=== PATIENT | male | born 1980 | race Caucasian/White ===

== ENCOUNTER 2018-03-31 16:35 | Inpatient (IN) ==
[2018-03-31] MEDS ORDERED: SODIUM CHLORIDE 0.9% 1,000 ML IV STA (17:17)
[2018-03-31] MEDS ORDERED: PANTOPRAZOLE 40 MG VIAL IV STA (17:17)
[2018-03-31] MEDS ORDERED: ONDANSETRON 4 MG/2 ML VIAL IV STA ×2 (17:17→20:06)
[2018-03-31] MEDS ORDERED: ALUM/MAG/SIMETH/LIDO VISC 1:1 30 ML BOTTLE PO STA (17:17)
[2018-03-31 18:16] LABS: Basophils % 0.1 % (0.0-0.8); Hematocrit 42.5 VOL% (42.0-52.0); Hemoglobin 14.6 GM/DL (14.0-18.0); Immature Granulocytes % 0.7 %; Immature Granulocytes Absolute 0.16 #; Lymphocytes # 1.7 10*3/uL (1.4-4.0); Mean Corpuscular HGB Conc 34.4 GM/DL (32-36); Mean Corpuscular Hemoglobin 31 PG (27-34); Mean Corpuscular Volume 88.7 FL (87-102); Mean Platelet Volume 9.1 FL (9.6-12.0); Monocytes % 8.5 % (1.7-12.7); Neutrophils # 19.7 10*3/uL (1.4-7.4); Neutrophils % 83.7 % (38.7-73.9); Platelet Count 271 T/CUMM (130-400); Red Blood Count 4.79 MC/CUMM (3.8-5.5); Red Cell Distribution Width 13.1 % (9.3-17.3); White Blood Count 23.6 T/CUMM (4-12)
[2018-03-31 18:37] LABS: Band Neutrophils 1 % (0-10); Lymphocytes 12 % (20-55); Platelet Estimate Normal; Segmented Neutrophils 81 % (50-85); Total Cells Counted 100
[2018-03-31 18:41] LABS: Albumin 4.3 G/DL (3.4-5.0); Bilirubin,Total 0.6 MG/DL (0.2-1.0); Calcium 9.7 MG/DL (8.5-10.1); Osmolality,Calculated 268.4 MOS/KG (273-304); Total Protein 8.4 G/DL (6.4-8.3)
[2018-03-31 19:13] LABS: Apearance,Urine Slightly Hazy (Clear); Bilirubin,Urine Negative (Negative); Blood, Urine Negative (Negative); Glucose,Urine (UA) Negative (Negative); Ketones,Urine 20 mg/dL (Negative); Mucus,Urine Moderate /LPF (Occasional); Nitrite,Urine Negative (Negative); Protein,Urine 100 MG/DL; RBC,Urine 16 /HPF (0-4); Urine Specific Gravity 1.028 (1.001-1.035); WBC,Urine 3 /HPF (0-6)
[2018-03-31 19:15] LABS: Urine Color Dark yellow (Yellow)
[2018-03-31 19:18] LABS: Barbiturates Screen,Urine Negative (Negative); Benzodiazepines Screen,Urine Negative (Negative); Cannabinoid Screen,Urine Positive (Negative); Opiate Screen,Urine Negative (Negative); Phencyclidine Screen,Urine Negative (Negative)
[2018-03-31] MEDS ORDERED: HYDROmorphone 2 MG/1 ML VIAL IV ONE (19:30)
[2018-03-31] MEDS ORDERED: PROMETHAZINE 25 MG/1 ML VIAL IM STA (19:51)
[2018-03-31] MEDS ORDERED: PIPERACILLIN/TAZOBACTAM 3,375 MG in SODIUM CHLORIDE 0.9% 100 ML IV STA (19:58)
[2018-03-31] MEDS ORDERED: ceFAZolin 1,000 MG in SYRINGE 1 EACH IV ONE (20:44)
[2018-03-31] MEDS ORDERED: HYDROmorphone 2 MG/1 ML VIAL ONE (22:20)
[2018-03-31] MEDS ORDERED: PROPOFOL 200 MG/20 ML VIAL IV ONE (22:20)
[2018-03-31] MEDS ORDERED: ONDANSETRON 4 MG/2 ML VIAL ONE ×2 (22:20→22:21)
[2018-03-31] MEDS ORDERED: fentaNYL 100 MCG/2 ML VIAL ONE (22:21)
[2018-03-31] MEDS ORDERED: MIDAZOLAM 2 MG/2 ML VIAL ONE (22:21)
[2018-03-31] MEDS ORDERED: PHENYLEPHRINE 0.5% NASAL SPRAY 15 ML BOTTLE BOTH NARES ONE (22:21)
[2018-03-31] MEDS ORDERED: SEVOFLURANE 1 UNIT/15 MINUTE INH ONE (22:21)
[2018-03-31] MEDS ORDERED: ONDANSETRON 4 MG/2 ML VIAL IV PRN (22:22)
[2018-03-31] MEDS ORDERED: GLYCOPYRROLATE 0.4 MG/2 ML VIAL ONE (22:22)
[2018-03-31] MEDS ORDERED: LACTATED RINGERS 2,000 ML IV ONE (22:22)
[2018-03-31] MEDS ORDERED: NEOSTIGMINE 10 MG/10 ML VIAL ONE (22:22)
[2018-03-31] MEDS ORDERED: ROCURONIUM 100 MG/10 ML VIAL IV ONE (22:22)
[2018-03-31] MEDS ORDERED: PHENYLEPHRINE 1 MG/10 ML SYRINGE IV ONE (22:22)
[2018-03-31] MEDS: HYDROmorphone 2 MG/1 ML VIAL IV PRN ×4 (22:39→23:42)
[2018-03-31] MEDS: DEXTROSE 5% LACTATED RINGERS 1,000 ML IV SCH (23:44)
[2018-03-31] MEDS: ONDANSETRON 4 MG/2 ML VIAL IV PRN (23:49)
[2018-04-01] MEDS: HYDROmorphone 2 MG/1 ML VIAL IV PRN ×7 (01:36→21:23)
[2018-04-01] MEDS: ONDANSETRON 4 MG/2 ML VIAL IV PRN ×4 (01:36→21:24)
[2018-04-01] MEDS: cefOXitin 2,000 MG in SYRINGE 1 EACH IV SCH ×3 (04:17→13:50)
[2018-04-01 05:19] LABS: Basophils # 0.1 10*3/uL (0.0-0.2); Basophils % 0.3 % (0.0-0.8); Eosinophils # 0.1 10*3/uL (0.0-0.87); Eosinophils % 0.4 % (0.00-10.9); Hematocrit 37.7 VOL% (42.0-52.0); Immature Granulocytes % 0.5 %; Immature Granulocytes Absolute 0.11 #; Lymphocytes % 13.4 % (21.2-54.2); Mean Corpuscular HGB Conc 33.2 GM/DL (32-36); Mean Corpuscular Hemoglobin 30 PG (27-34); Mean Corpuscular Volume 90.4 FL (87-102); Mean Platelet Volume 9.6 FL (9.6-12.0); Monocytes # 1.4 10*3/uL (0.11-0.8); Monocytes % 6.2 % (1.7-12.7); Neutrophils # 17.8 10*3/uL (1.4-7.4); Neutrophils % 79.2 % (38.7-73.9); Platelet Count 242 T/CUMM (130-400); Red Blood Count 4.17 MC/CUMM (3.8-5.5); Red Cell Distribution Width 13.2 % (9.3-17.3); White Blood Count 22.5 T/CUMM (4-12)
[2018-04-01 05:40] LABS: Hemoglobin 12.5 GM/DL (14.0-18.0)
[2018-04-01 05:46] LABS: Band Neutrophils 2 % (0-10); Calcium 8.3 MG/DL (8.5-10.1); Eosinophils 1 % (0-10); Osmolality,Calculated 269.1 MOS/KG (273-304); Potassium 3.6 MMOL/L (3.5-5.1); Total Cells Counted 100
[2018-04-01 05:47] LABS: Hypochromasia 2+; Lymphocytes 14 % (20-55); Platelet Estimate Normal; Segmented Neutrophils 78 % (50-85)
[2018-04-01] MEDS: DEXTROSE 5% LACTATED RINGERS 1,000 ML IV SCH ×4 (06:35→21:24)
[2018-04-01] MEDS: PANTOPRAZOLE 40 MG VIAL IV SCH (08:02)
[2018-04-01] MEDS ORDERED: ROPIVACAINE 0.5% 30 ML VIAL ONE (08:29)
[2018-04-01] MEDS ORDERED: LIDOCAINE 2% 20 ML VIAL ONE (08:29)
[2018-04-01] MEDS ORDERED: KETOROLAC 30 MG/1 ML VIAL IV ONE (14:34)
[2018-04-01] MEDS ORDERED: HYDROmorphone 2 MG/1 ML VIAL IV ONE (14:51)
[2018-04-01] MEDS: ceFAZolin 1,000 MG in SYRINGE 1 EACH IV SCH ×2 (15:13→21:46)
[2018-04-01] MEDS: KETOROLAC 15 MG/1 ML VIAL IV SCH (21:24)
[2018-04-02] MEDS: KETOROLAC 15 MG/1 ML VIAL IV SCH ×4 (02:47→20:33)
[2018-04-02] MEDS: DEXTROSE 5% LACTATED RINGERS 1,000 ML IV SCH ×3 (02:47→19:32)
[2018-04-02] MEDS: HYDROmorphone 2 MG/1 ML VIAL IV PRN ×4 (02:48→20:34)
[2018-04-02] MEDS: ONDANSETRON 4 MG/2 ML VIAL IV PRN (02:48)
[2018-04-02] MEDS: PANTOPRAZOLE 40 MG VIAL IV SCH (09:29)
[2018-04-02] MEDS: ceFAZolin 1,000 MG in SYRINGE 1 EACH IV SCH ×2 (09:29→17:11)
[2018-04-03] MEDS: ceFAZolin 1,000 MG in SYRINGE 1 EACH IV SCH ×3 (00:56→18:00)
[2018-04-03] MEDS: HYDROmorphone 2 MG/1 ML VIAL IV PRN ×3 (01:58→15:52)
[2018-04-03] MEDS: KETOROLAC 15 MG/1 ML VIAL IV SCH ×4 (02:50→20:35)
[2018-04-03] MEDS: DEXTROSE 5% LACTATED RINGERS 1,000 ML IV SCH ×3 (02:51→20:36)
[2018-04-03 04:35] LABS: Basophils % 0.3 % (0.0-0.8); Eosinophils # 0.4 10*3/uL (0.0-0.87); Eosinophils % 3.5 % (0.00-10.9); Hematocrit 33.7 VOL% (42.0-52.0); Hemoglobin 11.1 GM/DL (14.0-18.0); Immature Granulocytes % 0.3 %; Immature Granulocytes Absolute 0.04 #; Lymphocytes # 1.7 10*3/uL (1.4-4.0); Mean Corpuscular HGB Conc 32.9 GM/DL (32-36); Mean Corpuscular Hemoglobin 30 PG (27-34); Mean Corpuscular Volume 91.1 FL (87-102); Monocytes % 8.2 % (1.7-12.7); Neutrophils # 8.7 10*3/uL (1.4-7.4); Neutrophils % 73.7 % (38.7-73.9); Platelet Count 189 T/CUMM (130-400); White Blood Count 11.8 T/CUMM (4-12)
[2018-04-03 05:01] LABS: Calcium 8.3 MG/DL (8.5-10.1); Osmolality,Calculated 265.1 MOS/KG (273-304); Potassium 3.5 MMOL/L (3.5-5.1)
[2018-04-03] MEDS: PANTOPRAZOLE 40 MG VIAL IV SCH (09:17)
[2018-04-04] MEDS: ceFAZolin 1,000 MG in SYRINGE 1 EACH IV SCH ×2 (01:07→09:29)
[2018-04-04] MEDS: DEXTROSE 5% LACTATED RINGERS 1,000 ML IV SCH ×2 (01:07→13:52)
[2018-04-04] MEDS: KETOROLAC 15 MG/1 ML VIAL IV SCH ×2 (03:08→09:29)
[2018-04-04] MEDS: PANTOPRAZOLE 40 MG VIAL IV SCH (09:29)
[2018-04-04] MEDS: HYDROmorphone 2 MG/1 ML VIAL IV PRN (09:30)
[2018-04-04 10:24] VITALS: BP 141/89
== END 2018-04-04 12:51 | disposition home or self-care (01) | DRG 330 ==
LOC: N.ED 16:35 → N.EDINP 19:59 → N.3E 20:15
PROVIDERS: ADMIT Surgery; ATTEND Surgery

== ENCOUNTER 2018-12-04 07:30 | Inpatient (IN) ==
[2018-12-04 07:59] LABS: Basophils # 0.1 10*3/uL (0.0-0.2); Basophils % 0.4 % (0.0-0.8); Eosinophils # 0.1 10*3/uL (0.0-0.87); Eosinophils % 0.5 % (0.00-10.9); Hematocrit 45.2 VOL% (42.0-52.0); Hemoglobin 15.5 GM/DL (14.0-18.0); Immature Granulocytes % 0.3 %; Immature Granulocytes Absolute 0.04 #; Lymphocytes # 1.1 10*3/uL (1.4-4.0); Lymphocytes % 9.6 % (21.2-54.2); Mean Corpuscular HGB Conc 34.3 GM/DL (32-36); Mean Corpuscular Volume 89.5 FL (87-102); Monocytes % 8.7 % (1.7-12.7); Neutrophils % 80.5 % (38.7-73.9); Platelet Count 246 T/CUMM (130-400); Red Blood Count 5.05 MC/CUMM (3.8-5.5); Red Cell Distribution Width 13.9 % (9.3-17.3); White Blood Count 11.6 T/CUMM (4-12)
[2018-12-04 08:33] LABS: Alanine Aminotransferase 23 U/L (16-61); Alkaline Phosphatase 99 U/L (45-117); Aspartate Amino Transferase 13 U/L (0-37); Bilirubin,Total < 0.39 MG/DL (0.2-1.0); Blood Urea Nitrogen 12 MG/DL (7-18); Calcium 9.2 MG/DL (8.5-10.1); Estimated Glom Filtration Rate 110 ML/MIN; Glucose 82 MG/DL (74-106); Osmolality,Calculated 271.8 MOS/KG (273-304); Total Protein 7.5 G/DL (6.4-8.3)
[2018-12-04 09:00] LABS: Apearance,Urine CLEAR (Clear); Bilirubin,Urine Negative (Negative); Blood, Urine Negative (Negative); Glucose,Urine (UA) Negative (Negative); Ketones,Urine Negative (Negative); Mucus,Urine Moderate /LPF (Occasional); Nitrite,Urine Negative (Negative); Protein,Urine Negative; RBC,Urine 4 /HPF (0-4); Urine Color Yellow (Yellow); Urine Specific Gravity > 1.060 (1.001-1.035); Urine Urobilinogen < 2.0 EU/DL (0.2-1.0); WBC,Urine <1 /HPF (0-6)
[2018-12-04 09:04] LABS: Barbiturates Screen,Urine Negative (Negative); Benzodiazepines Screen,Urine Negative (Negative); Cannabinoid Screen,Urine Positive (Negative); Opiate Screen,Urine Negative (Negative); Phencyclidine Screen,Urine Negative (Negative)
[2018-12-04] MEDS ORDERED: HYDROmorphone 2 MG/1 ML VIAL IV STA (09:17)
[2018-12-04] MEDS ORDERED: ONDANSETRON 4 MG/2 ML VIAL IV ONE (09:17)
[2018-12-04] MEDS ORDERED: cefOXitin 2,000 MG in SYRINGE 1 EACH IV ONE (09:49)
[2018-12-04] MEDS ORDERED: ACETAMINOPHEN 325 MG TABLET PO PRN (09:50)
[2018-12-04] MEDS ORDERED: ALBUTEROL/IPRATROPIUM 3 ML NEB RESP TX STA (10:02)
[2018-12-04] MEDS ORDERED: FAMOTIDINE 20 MG/2 ML VIAL IV STA (10:03)
[2018-12-04] MEDS ORDERED: BUPIVACAINE 0.25% /EPI 10 ML VIAL ONE (10:07)
[2018-12-04] MEDS ORDERED: HYDROmorphone 2 MG/1 ML VIAL ONE (12:15)
[2018-12-04] MEDS ORDERED: EPINEPHrine 1 MG/ML VIAL ONE (12:17)
[2018-12-04] MEDS: HYDROmorphone 2 MG/1 ML VIAL IV PRN ×7 (12:17→21:09)
[2018-12-04] MEDS ORDERED: LIDOCAINE 50 MG/5 ML SYRINGE ONE (12:20)
[2018-12-04 12:21] LABS: Apearance,Urine CLEAR (Clear); Bilirubin,Urine Negative (Negative); Blood, Urine Negative (Negative); Glucose,Urine (UA) Negative (Negative); Ketones,Urine Negative (Negative); Mucus,Urine Occasional /LPF (Occasional); Nitrite,Urine Negative (Negative); Protein,Urine Negative; RBC,Urine 9 /HPF (0-4); Urine Color Yellow (Yellow); Urine Specific Gravity > 1.060 (1.001-1.035); Urine Urobilinogen < 2.0 EU/DL (0.2-1.0); WBC,Urine 2 /HPF (0-6)
[2018-12-04] MEDS ORDERED: fentaNYL 100 MCG/2 ML VIAL ONE (12:43)
[2018-12-04] MEDS ORDERED: LIDOCAINE 100 MG/5 ML SYRINGE ONE (12:43)
[2018-12-04] MEDS ORDERED: MIDAZOLAM 2 MG/2 ML VIAL ONE (12:43)
[2018-12-04] MEDS ORDERED: PROPOFOL 200 MG/20 ML VIAL IV ONE (12:43)
[2018-12-04] MEDS ORDERED: DESFLURANE 1 UNIT/15 MINUTE INH ONE (12:43)
[2018-12-04] MEDS ORDERED: SEVOFLURANE 1 UNIT/15 MINUTE INH ONE (12:43)
[2018-12-04] MEDS ORDERED: KETOROLAC 30 MG/1 ML VIAL ONE (12:44)
[2018-12-04] MEDS ORDERED: ROCURONIUM 100 MG/10 ML VIAL IV ONE (12:44)
[2018-12-04] MEDS ORDERED: LACTATED RINGERS 1,000 ML IV ONE (12:44)
[2018-12-04] MEDS ORDERED: GLYCOPYRROLATE 0.4 MG/2 ML VIAL ONE (12:44)
[2018-12-04] MEDS ORDERED: NEOSTIGMINE 10 MG/10 ML VIAL ONE (12:44)
[2018-12-04] MEDS ORDERED: PHENYLEPHRINE 1 MG/10 ML SYRINGE IV ONE (12:44)
[2018-12-04] MEDS ORDERED: SUCCINYLCHOLINE 200 MG/10 ML VIAL ONE (12:44)
[2018-12-04] MEDS: ONDANSETRON 4 MG/2 ML VIAL IV PRN (14:43)
[2018-12-04] MEDS: cefOXitin 2,000 MG in SYRINGE 1 EACH IV SCH (18:45)
[2018-12-04] MEDS: LACTATED RINGERS 1,000 ML IV SCH ×2 (18:55→19:03)
[2018-12-05] MEDS: cefOXitin 2,000 MG in SYRINGE 1 EACH IV SCH ×4 (01:00→18:53)
[2018-12-05] MEDS: HYDROmorphone 2 MG/1 ML VIAL IV PRN ×9 (01:04→22:43)
[2018-12-05] MEDS: ONDANSETRON 4 MG/2 ML VIAL IV PRN ×3 (02:22→16:48)
[2018-12-05] MEDS: LACTATED RINGERS 1,000 ML IV SCH ×4 (03:03→21:16)
[2018-12-05 04:53] LABS: Basophils % 0.2 % (0.0-0.8); Eosinophils % 0.1 % (0.00-10.9); Hematocrit 41.7 VOL% (42.0-52.0); Hemoglobin 14.2 GM/DL (14.0-18.0); Immature Granulocytes % 0.9 %; Immature Granulocytes Absolute 0.16 #; Lymphocytes % 5.9 % (21.2-54.2); Mean Corpuscular HGB Conc 34.1 GM/DL (32-36); Mean Corpuscular Volume 89.5 FL (87-102); Mean Platelet Volume 9.8 FL (9.6-12.0); Monocytes % 6.2 % (1.7-12.7); Neutrophils % 86.7 % (38.7-73.9); Platelet Count 219 T/CUMM (130-400); Red Blood Count 4.66 MC/CUMM (3.8-5.5); Red Cell Distribution Width 13.8 % (9.3-17.3); White Blood Count 17.1 T/CUMM (4-12)
[2018-12-05 05:18] LABS: Albumin 3.2 G/DL (3.4-5.0); Bilirubin,Total 0.4 MG/DL (0.2-1.0); Calcium 8.6 MG/DL (8.5-10.1); Osmolality,Calculated 268.1 MOS/KG (273-304); Total Protein 6.9 G/DL (6.4-8.3)
[2018-12-05] MEDS: PANTOPRAZOLE 40 MG TABLET PO SCH (08:42)
[2018-12-05] MEDS: METHOCARBAMOL 750 MG TABLET PO SCH ×2 (16:48→20:25)
[2018-12-06] MEDS: cefOXitin 2,000 MG in SYRINGE 1 EACH IV SCH ×5 (00:40→23:21)
[2018-12-06] MEDS: LACTATED RINGERS 1,000 ML IV SCH ×3 (01:47→12:27)
[2018-12-06] MEDS: HYDROmorphone 2 MG/1 ML VIAL IV PRN ×3 (04:28→19:30)
[2018-12-06] MEDS: PANTOPRAZOLE 40 MG TABLET PO SCH (08:32)
[2018-12-06] MEDS: METHOCARBAMOL 750 MG TABLET PO SCH ×4 (08:33→20:58)
[2018-12-06] MEDS: ONDANSETRON 4 MG/2 ML VIAL IV PRN ×2 (09:02→17:39)
[2018-12-06 09:24] LABS: Basophils % 0.4 % (0.0-0.8); Eosinophils # 0.3 10*3/uL (0.0-0.87); Eosinophils % 2.5 % (0.00-10.9); Hematocrit 40.4 VOL% (42.0-52.0); Hemoglobin 13.7 GM/DL (14.0-18.0); Immature Granulocytes % 0.3 %; Immature Granulocytes Absolute 0.03 #; Lymphocytes # 1.3 10*3/uL (1.4-4.0); Lymphocytes % 13.1 % (21.2-54.2); Mean Corpuscular HGB Conc 33.9 GM/DL (32-36); Mean Platelet Volume 10.2 FL (9.6-12.0); Monocytes % 7.5 % (1.7-12.7); Neutrophils % 76.2 % (38.7-73.9); Platelet Count 194 T/CUMM (130-400); Red Blood Count 4.54 MC/CUMM (3.8-5.5); Red Cell Distribution Width 13.7 % (9.3-17.3)
[2018-12-06 09:45] LABS: Calcium 8.8 MG/DL (8.5-10.1); Osmolality,Calculated 262.4 MOS/KG (273-304)
[2018-12-07] MEDS: LACTATED RINGERS 1,000 ML IV SCH ×2 (03:01→17:21)
[2018-12-07] MEDS: HYDROmorphone 2 MG/1 ML VIAL IV PRN ×2 (03:45→20:46)
[2018-12-07] MEDS: cefOXitin 2,000 MG in SYRINGE 1 EACH IV SCH ×3 (05:52→17:23)
[2018-12-07] MEDS: METHOCARBAMOL 750 MG TABLET PO SCH ×4 (08:37→20:46)
[2018-12-07] MEDS: PANTOPRAZOLE 40 MG TABLET PO SCH (08:37)
[2018-12-08] MEDS: cefOXitin 2,000 MG in SYRINGE 1 EACH IV SCH ×3 (00:57→13:06)
[2018-12-08] MEDS: HYDROmorphone 2 MG/1 ML VIAL IV PRN (04:28)
[2018-12-08] MEDS: METHOCARBAMOL 750 MG TABLET PO SCH ×2 (08:51→13:09)
[2018-12-08] MEDS: LACTATED RINGERS 1,000 ML IV SCH (08:52)
[2018-12-08] MEDS: PANTOPRAZOLE 40 MG TABLET PO SCH (08:55)
[2018-12-08 11:10] VITALS: BP 127/80
== END 2018-12-08 13:15 | disposition home or self-care (01) | DRG 336 ==
LOC: N.ED 07:30 → N.EDINP 09:50 → N.3E 10:20
PROVIDERS: ADMIT Student in an Organized Health Care Education/Training Program; ATTEND Student in an Organized Health Care Education/Training Program

== ENCOUNTER 2018-12-15 14:39 | Inpatient (IN) ==
[2018-12-15] MEDS ORDERED: KETOROLAC 30 MG/1 ML VIAL IV STA (16:26)
[2018-12-15] MEDS ORDERED: ORPHENADRINE 60 MG/2 ML VIAL IV STA (16:26)
[2018-12-15 16:53] LABS: Basophils # 0.1 10*3/uL (0.0-0.2); Basophils % 0.4 % (0.0-0.8); Eosinophils # 0.5 10*3/uL (0.0-0.87); Eosinophils % 3.1 % (0.00-10.9); Hematocrit 44.6 VOL% (42.0-52.0); Immature Granulocytes % 0.4 %; Immature Granulocytes Absolute 0.07 #; Lymphocytes # 3.1 10*3/uL (1.4-4.0); Lymphocytes % 19.7 % (21.2-54.2); Mean Corpuscular HGB Conc 33.6 GM/DL (32-36); Mean Corpuscular Volume 88.3 FL (87-102); Mean Platelet Volume 9.1 FL (9.6-12.0); Monocytes % 8.8 % (1.7-12.7); Neutrophils % 67.6 % (38.7-73.9); Platelet Count 399 T/CUMM (130-400); Red Blood Count 5.05 MC/CUMM (3.8-5.5); Red Cell Distribution Width 14.3 % (9.3-17.3); White Blood Count 15.7 T/CUMM (4-12)
[2018-12-15 17:16] LABS: Alanine Aminotransferase 27 U/L (16-61); Albumin 3.5 G/DL (3.4-5.0); Alkaline Phosphatase 91 U/L (45-117); Amylase 174 U/L (25-115); Aspartate Amino Transferase 15 U/L (0-37); Bilirubin,Total < 0.39 MG/DL (0.2-1.0); Blood Urea Nitrogen 21 MG/DL (7-18); Calcium 9.1 MG/DL (8.5-10.1); Estimated Glom Filtration Rate 116 ML/MIN; Glucose 87 MG/DL (74-106); Osmolality,Calculated 271.1 MOS/KG (273-304); Total Protein 8.2 G/DL (6.4-8.3); Troponin I < 0.015 NG/ML (0.00-0.045)
[2018-12-15] MEDS ORDERED: METOCLOPRAMIDE 10 MG/2 ML VIAL IV STA (17:29)
[2018-12-15] MEDS ORDERED: SODIUM CHLORIDE 0.9% 1,000 ML IV STA (17:29)
[2018-12-15] MEDS ORDERED: PANTOPRAZOLE 40 MG VIAL IV STA (17:29)
[2018-12-15 18:14] LABS: Apearance,Urine CLEAR (Clear); Bacteria,Urine Occasional /HPF (Few); Bilirubin,Urine Negative (Negative); Blood, Urine Negative (Negative); Glucose,Urine (UA) Negative (Negative); Hyaline Casts,Urine 4 /LPF (0-3); Ketones,Urine Negative (Negative); Mucus,Urine Many /LPF (Occasional); Nitrite,Urine Negative (Negative); Protein,Urine Negative; RBC,Urine 2 /HPF (0-4); Urine Color Yellow (Yellow); Urine Specific Gravity 1.025 (1.001-1.035); WBC,Urine 2 /HPF (0-6)
[2018-12-15] MEDS ORDERED: DOCUSATE SODIUM 100 MG CAPSULE PO PRN (18:25)
[2018-12-15] MEDS ORDERED: LACTULOSE 20 GM/30 ML UDCUP PO PRN (18:25)
[2018-12-15 18:33] LABS: Barbiturates Screen,Urine Negative (Negative); Benzodiazepines Screen,Urine Negative (Negative); Cannabinoid Screen,Urine Positive (Negative); Opiate Screen,Urine Positive (Negative); Phencyclidine Screen,Urine Negative (Negative)
[2018-12-15] MEDS: HYDROmorphone 2 MG/1 ML VIAL IV PRN (19:38)
[2018-12-15] MEDS: ONDANSETRON 4 MG/2 ML VIAL IV PRN (19:40)
[2018-12-15] MEDS: DEXTROSE 5% NACL 0.45% 1,000 ML IV SCH (20:17)
[2018-12-15] MEDS: NICOTINE 14 MG/24 HR PATCH TRANSDERM SCH (20:18)
[2018-12-15] MEDS: ENOXAPARIN 40 MG/0.4 ML SYRINGE SUBCUT SCH (20:20)
[2018-12-16] MEDS: HYDROmorphone 2 MG/1 ML VIAL IV PRN ×5 (00:55→20:42)
[2018-12-16] MEDS: DEXTROSE 5% NACL 0.45% 1,000 ML IV SCH ×3 (03:36→19:32)
[2018-12-16 05:21] LABS: Basophils # 0.1 10*3/uL (0.0-0.2); Basophils % 0.6 % (0.0-0.8); Eosinophils # 0.6 10*3/uL (0.0-0.87); Eosinophils % 4.9 % (0.00-10.9); Hematocrit 38.5 VOL% (42.0-52.0); Hemoglobin 12.9 GM/DL (14.0-18.0); Immature Granulocytes % 0.4 %; Immature Granulocytes Absolute 0.05 #; Lymphocytes # 3.6 10*3/uL (1.4-4.0); Mean Corpuscular HGB Conc 33.5 GM/DL (32-36); Mean Corpuscular Volume 89.7 FL (87-102); Mean Platelet Volume 9.4 FL (9.6-12.0); Monocytes % 9.9 % (1.7-12.7); Neutrophils % 55.2 % (38.7-73.9); Platelet Count 371 T/CUMM (130-400); Red Blood Count 4.29 MC/CUMM (3.8-5.5); Red Cell Distribution Width 14.4 % (9.3-17.3); White Blood Count 12.3 T/CUMM (4-12)
[2018-12-16 06:02] LABS: Calcium 8.8 MG/DL (8.5-10.1); Osmolality,Calculated 275.7 MOS/KG (273-304)
[2018-12-16] MEDS: PANTOPRAZOLE 40 MG VIAL IV SCH (08:17)
[2018-12-16] MEDS: NICOTINE 14 MG/24 HR PATCH TRANSDERM SCH (08:17)
[2018-12-16] MEDS: LIPASE/PROTEASE/AMYLASE 4,200 UNITS CAPSULE PO SCH ×2 (14:21→17:00)
[2018-12-16] MEDS: ONDANSETRON 4 MG/2 ML VIAL IV PRN (17:01)
[2018-12-16] MEDS: ENOXAPARIN 40 MG/0.4 ML SYRINGE SUBCUT SCH (20:43)
[2018-12-17] MEDS: DEXTROSE 5% NACL 0.45% 1,000 ML IV SCH ×2 (03:35→11:11)
[2018-12-17] MEDS: HYDROmorphone 2 MG/1 ML VIAL IV PRN ×2 (04:13→09:47)
[2018-12-17 06:58] LABS: Basophils # 0.1 10*3/uL (0.0-0.2); Basophils % 0.9 % (0.0-0.8); Eosinophils # 0.5 10*3/uL (0.0-0.87); Eosinophils % 5.3 % (0.00-10.9); Hematocrit 41.9 VOL% (42.0-52.0); Hemoglobin 14.4 GM/DL (14.0-18.0); Immature Granulocytes % 0.4 %; Immature Granulocytes Absolute 0.04 #; Lymphocytes # 2.1 10*3/uL (1.4-4.0); Lymphocytes % 21.5 % (21.2-54.2); Mean Corpuscular HGB Conc 34.4 GM/DL (32-36); Monocytes % 10.3 % (1.7-12.7); Neutrophils % 61.6 % (38.7-73.9); Platelet Count 420 T/CUMM (130-400); Red Blood Count 4.71 MC/CUMM (3.8-5.5); Red Cell Distribution Width 13.9 % (9.3-17.3); White Blood Count 9.9 T/CUMM (4-12)
[2018-12-17 07:33] LABS: Calcium 8.8 MG/DL (8.5-10.1); Osmolality,Calculated 269.8 MOS/KG (273-304)
[2018-12-17] MEDS: NICOTINE 14 MG/24 HR PATCH TRANSDERM SCH (09:38)
[2018-12-17] MEDS: PANTOPRAZOLE 40 MG VIAL IV SCH (09:38)
[2018-12-17] MEDS: LIPASE/PROTEASE/AMYLASE 4,200 UNITS CAPSULE PO SCH ×2 (09:43→12:25)
[2018-12-17 11:50] VITALS: BP 124/87
[2018-12-17] MEDS: ONDANSETRON 4 MG/2 ML VIAL IV PRN (12:25)
== END 2018-12-17 13:50 | disposition home or self-care (01) | DRG 392 ==
LOC: N.ED 14:39 → N.EDINP 18:25 → N.2E 19:51
PROVIDERS: ADMIT Hospitalist; ATTEND Hospitalist

== ENCOUNTER 2019-02-21 10:27 | Observation (INO) ==
[2019-02-21] MEDS ORDERED: SODIUM CHLORIDE 0.9% 1,000 ML IV STA (12:56)
[2019-02-21] MEDS ORDERED: ONDANSETRON 4 MG/2 ML VIAL IV STA ×2 (12:56→13:07)
[2019-02-21] MEDS ORDERED: HYDROmorphone 2 MG/1 ML VIAL IV STA (13:07)
[2019-02-21 13:13] LABS: Basophils % 0.3 % (0.0-0.8); Eosinophils # 0.2 10*3/uL (0.0-0.87); Eosinophils % 1.7 % (0.00-10.9); Hematocrit 45.4 VOL% (42.0-52.0); Hemoglobin 15.3 GM/DL (14.0-18.0); Immature Granulocytes % 0.3 %; Immature Granulocytes Absolute 0.04 #; Lymphocytes # 1.9 10*3/uL (1.4-4.0); Lymphocytes % 15.9 % (21.2-54.2); Mean Corpuscular HGB Conc 33.7 GM/DL (32-36); Mean Corpuscular Volume 91.9 FL (87-102); Monocytes % 9.8 % (1.7-12.7); Platelet Count 256 T/CUMM (130-400); Red Blood Count 4.94 MC/CUMM (3.8-5.5); Red Cell Distribution Width 15.2 % (9.3-17.3)
[2019-02-21 13:48] LABS: Albumin 3.8 G/DL (3.4-5.0); Bilirubin,Total 0.8 MG/DL (0.2-1.0); Calcium 8.8 MG/DL (8.5-10.1); Osmolality,Calculated 274.7 MOS/KG (273-304); Total Protein 7.7 G/DL (6.4-8.3)
[2019-02-21] MEDS ORDERED: PROMETHAZINE 25 MG/1 ML VIAL IV PRN (15:10)
[2019-02-21] MEDS ORDERED: ONDANSETRON 4 MG/2 ML VIAL IV PRN (15:10)
[2019-02-21] MEDS ORDERED: NICOTINE 21 MG/24 HR PATCH TRANSDERM PRN (15:10)
[2019-02-21] MEDS: ENOXAPARIN 40 MG/0.4 ML SYRINGE SUBCUT SCH (17:33)
[2019-02-21] MEDS: SODIUM CHLORIDE 0.9% 1,000 ML IV SCH ×2 (17:33→23:31)
[2019-02-21] MEDS: MORPHINE 4 MG/1 ML VIAL IV PRN (18:28)
[2019-02-21] MEDS: HYDROmorphone 2 MG/1 ML VIAL IV PRN ×2 (18:44→23:31)
[2019-02-21] MEDS ORDERED: INFLUENZA VIRUS VACCINE 0.5 ML SYRINGE IM ONE (18:53)
[2019-02-22] MEDS: HYDROmorphone 2 MG/1 ML VIAL IV PRN ×5 (03:52→21:03)
[2019-02-22 04:44] LABS: Basophils # 0.1 10*3/uL (0.0-0.2); Basophils % 0.5 % (0.0-0.8); Eosinophils # 0.3 10*3/uL (0.0-0.87); Eosinophils % 2.9 % (0.00-10.9); Immature Granulocytes % 0.2 %; Immature Granulocytes Absolute 0.02 #; Lymphocytes # 3.6 10*3/uL (1.4-4.0); Lymphocytes % 32.7 % (21.2-54.2); Mean Corpuscular HGB Conc 33.3 GM/DL (32-36); Mean Corpuscular Volume 92.2 FL (87-102); Mean Platelet Volume 9.5 FL (9.6-12.0); Monocytes % 9.3 % (1.7-12.7); Neutrophils % 54.4 % (38.7-73.9); Platelet Count 255 T/CUMM (130-400); Red Blood Count 4.23 MC/CUMM (3.8-5.5); Red Cell Distribution Width 15.2 % (9.3-17.3)
[2019-02-22 04:59] LABS: Albumin 2.9 G/DL (3.4-5.0); Bilirubin,Total 0.4 MG/DL (0.2-1.0); Calcium 8.2 MG/DL (8.5-10.1); Osmolality,Calculated 274.5 MOS/KG (273-304); Total Protein 6.2 G/DL (6.4-8.3)
[2019-02-22] MEDS: SODIUM CHLORIDE 0.9% 1,000 ML IV SCH ×3 (08:25→21:50)
[2019-02-22] MEDS: ENOXAPARIN 40 MG/0.4 ML SYRINGE SUBCUT SCH (15:33)
[2019-02-22] MEDS ORDERED: MAGNESIUM CITRATE 300 ML BOTTLE PO ONE (18:00)
[2019-02-22 21:32] LABS: Apearance,Urine CLEAR (Clear); Bilirubin,Urine Negative (Negative); Blood, Urine Small mg/dL (Negative); Glucose,Urine (UA) Negative (Negative); Ketones,Urine 5 mg/dL (Negative); Mucus,Urine Occasional /LPF (Occasional); Nitrite,Urine Negative (Negative); Protein,Urine Negative; RBC,Urine 3 /HPF (0-4); Urine Color Straw (Yellow); Urine Specific Gravity 1.009 (1.001-1.035); Urine Urobilinogen < 2.0 EU/DL (0.2-1.0); WBC,Urine <1 /HPF (0-6)
[2019-02-23] MEDS: HYDROmorphone 2 MG/1 ML VIAL IV PRN ×4 (01:37→15:23)
[2019-02-23 05:35] LABS: Basophils # 0.1 10*3/uL (0.0-0.2); Basophils % 0.6 % (0.0-0.8); Eosinophils # 0.3 10*3/uL (0.0-0.87); Eosinophils % 3.3 % (0.00-10.9); Hematocrit 44.8 VOL% (42.0-52.0); Hemoglobin 15.1 GM/DL (14.0-18.0); Immature Granulocytes % 0.2 %; Immature Granulocytes Absolute 0.02 #; Lymphocytes # 2.9 10*3/uL (1.4-4.0); Lymphocytes % 34.6 % (21.2-54.2); Mean Corpuscular HGB Conc 33.7 GM/DL (32-36); Mean Corpuscular Volume 91.4 FL (87-102); Mean Platelet Volume 9.5 FL (9.6-12.0); Monocytes % 11.6 % (1.7-12.7); Neutrophils % 49.7 % (38.7-73.9); Platelet Count 275 T/CUMM (130-400); Red Cell Distribution Width 14.5 % (9.3-17.3); White Blood Count 8.4 T/CUMM (4-12)
[2019-02-23 06:14] LABS: Albumin 3.4 G/DL (3.4-5.0); Bilirubin,Total 0.5 MG/DL (0.2-1.0); Calcium 8.6 MG/DL (8.5-10.1); Osmolality,Calculated 271.7 MOS/KG (273-304); Total Protein 7.2 G/DL (6.4-8.3)
[2019-02-23] MEDS: SODIUM CHLORIDE 0.9% 1,000 ML IV SCH ×2 (06:15→13:32)
[2019-02-23] MEDS: MORPHINE 4 MG/1 ML VIAL IV PRN (10:03)
[2019-02-23] MEDS: ENOXAPARIN 40 MG/0.4 ML SYRINGE SUBCUT SCH (15:23)
[2019-02-23 15:58] VITALS: BP 128/83
== END 2019-02-23 17:00 | disposition home or self-care (01) ==
LOC: N.ED 10:27 → N.EDINP 10:27 → N.3E 17:33
PROVIDERS: ADMIT Internal Medicine; ATTEND Internal Medicine

== ENCOUNTER 2020-07-09 04:47 | Inpatient (IN) ==
[2020-07-09] MEDS ORDERED: SODIUM CHLORIDE 0.9% 500 ML IV STA (05:43)
[2020-07-09] MEDS ORDERED: ONDANSETRON 4 MG/2 ML VIAL IV STA (05:43)
[2020-07-09] MEDS ORDERED: HYDROmorphone 2 MG/1 ML VIAL IV STA (06:22)
[2020-07-09] MEDS ORDERED: SODIUM CHLORIDE 0.9% 1,000 ML IV STA (06:22)
[2020-07-09 06:43] LABS: Basophils # 0.1 10*3/uL (0.0-0.2); Basophils % 0.4 % (0.0-0.8); Eosinophils # 0.3 10*3/uL (0.0-0.87); Eosinophils % 1.9 % (0.00-10.9); Hematocrit 46.2 VOL% (42.0-52.0); Hemoglobin 15.8 GM/DL (14.0-18.0); Immature Granulocytes % 0.3 %; Immature Granulocytes Absolute 0.04 #; Lymphocytes # 1.8 10*3/uL (1.4-4.0); Lymphocytes % 13.6 % (21.2-54.2); Mean Corpuscular HGB Conc 34.2 GM/DL (32-36); Mean Corpuscular Volume 89.5 FL (87-102); Mean Platelet Volume 9.6 FL (9.6-12.0); Monocytes % 7.9 % (1.7-12.7); Neutrophils % 75.9 % (38.7-73.9); Platelet Count 277 T/CUMM (130-400); Red Blood Count 5.16 MC/CUMM (3.8-5.5); Red Cell Distribution Width 12.8 % (9.3-17.3); White Blood Count 13.4 T/CUMM (4-12)
[2020-07-09 07:07] LABS: Albumin 4.5 G/DL (3.4-5.0); Bilirubin,Total 0.7 MG/DL (0.2-1.0); Calcium 9.4 MG/DL (8.5-10.1); Osmolality,Calculated 271.1 MOS/KG (273-304); Potassium 3.8 MMOL/L (3.5-5.1)
[2020-07-09 08:34] LABS: Bilirubin,Urine Negative (Negative); Blood, Urine Negative (Negative); Glucose,Urine (UA) Negative (Negative); Ketones,Urine 5 mg/dL (Negative); Mucus,Urine Moderate /LPF (Occasional); Nitrite,Urine Negative (Negative); Protein,Urine Negative; RBC,Urine 1 /HPF (0-4); Urine Appearance CLEAR (Clear); Urine Color Yellow (Yellow); Urine Specific Gravity 1.056 (1.001-1.035); Urine Urobilinogen < 2.0 EU/DL (0.2-1.0); WBC,Urine <1 /HPF (0-6)
[2020-07-09] MEDS ORDERED: BISACODYL 5 MG TABLET PO PRN (08:38)
[2020-07-09] MEDS ORDERED: HYDROmorphone 2 MG/1 ML VIAL IV PRN (08:38)
[2020-07-09] MEDS ORDERED: KETOROLAC 30 MG/1 ML VIAL IV PRN (08:38)
[2020-07-09] MEDS ORDERED: ALBUTEROL/IPRATROPIUM 3 ML NEB RESP TX PRN (08:38)
[2020-07-09] MEDS ORDERED: ACETAMINOPHEN 325 MG TABLET PO PRN (08:38)
[2020-07-09] MEDS: HYDROmorphone 2 MG/1 ML VIAL IV PRN ×5 (10:58→22:57)
[2020-07-09] MEDS: LACTATED RINGERS 1,000 ML IV SCH ×2 (10:59→20:58)
[2020-07-09] MEDS: PANTOPRAZOLE 40 MG TABLET PO SCH (10:59)
[2020-07-09] MEDS: PIPERACILLIN/TAZOBACTAM 3,375 MG in SODIUM CHLORIDE 0.9% 100 ML IV SCH ×2 (10:59→16:42)
[2020-07-10] MEDS: LACTATED RINGERS 1,000 ML IV SCH ×2 (01:08→08:20)
[2020-07-10] MEDS: PIPERACILLIN/TAZOBACTAM 3,375 MG in SODIUM CHLORIDE 0.9% 100 ML IV SCH ×2 (02:26→08:20)
[2020-07-10] MEDS: ONDANSETRON 4 MG/2 ML VIAL IV PRN ×2 (02:33→07:27)
[2020-07-10 05:13] LABS: Basophils % 0.3 % (0.0-0.8); Eosinophils # 0.3 10*3/uL (0.0-0.87); Eosinophils % 2.5 % (0.00-10.9); Hematocrit 37.9 VOL% (42.0-52.0); Hemoglobin 13.1 GM/DL (14.0-18.0); Immature Granulocytes % 0.7 %; Lymphocytes # 3.1 10*3/uL (1.4-4.0); Lymphocytes % 23.5 % (21.2-54.2); Mean Corpuscular HGB Conc 34.6 GM/DL (32-36); Mean Corpuscular Volume 89.4 FL (87-102); Mean Platelet Volume 9.5 FL (9.6-12.0); Monocytes % 9.6 % (1.7-12.7); Neutrophils % 63.4 % (38.7-73.9); Platelet Count 214 T/CUMM (130-400); Red Blood Count 4.24 MC/CUMM (3.8-5.5); Red Cell Distribution Width 12.9 % (9.3-17.3); White Blood Count 13.3 T/CUMM (4-12)
[2020-07-10 05:35] LABS: Calcium 8.6 MG/DL (8.5-10.1); Potassium 3.8 MMOL/L (3.5-5.1)
[2020-07-10] MEDS: HYDROmorphone 2 MG/1 ML VIAL IV PRN (07:27)
[2020-07-10] MEDS: PANTOPRAZOLE 40 MG TABLET PO SCH (08:20)
[2020-07-10 11:55] VITALS: BP 127/80
[2020-07-10] MEDS ORDERED: MEGESTROL 40 MG TABLET PO SCH (21:00)
== END 2020-07-10 13:18 | disposition home or self-care (01) | DRG 389 ==
LOC: N.ED 04:47 → N.EDINP 08:38 → N.5E 10:18
PROVIDERS: ADMIT Student in an Organized Health Care Education/Training Program; ATTEND Student in an Organized Health Care Education/Training Program

== ENCOUNTER 2020-09-17 08:01 | Inpatient (IN) ==
[2020-09-17] MEDS ORDERED: SODIUM CHLORIDE 0.9% 1,000 ML IV STA ×2 (08:31→08:34)
[2020-09-17] MEDS ORDERED: ONDANSETRON 4 MG/2 ML VIAL IV STA (08:34)
[2020-09-17] MEDS ORDERED: HYDROmorphone 2 MG/1 ML VIAL IV STA ×2 (08:34→10:35)
[2020-09-17 08:50] LABS: Basophils % 0.3 % (0.0-0.8); Eosinophils # 0.1 10*3/uL (0.0-0.87); Hemoglobin 15.1 GM/DL (14.0-18.0); Immature Granulocytes % 0.3 %; Immature Granulocytes Absolute 0.04 #; Lymphocytes # 1.8 10*3/uL (1.4-4.0); Lymphocytes % 15.4 % (21.2-54.2); Mean Corpuscular HGB Conc 33.6 GM/DL (32-36); Mean Corpuscular Volume 89.5 FL (87-102); Mean Platelet Volume 9.1 FL (9.6-12.0); Monocytes % 7.5 % (1.7-12.7); Neutrophils % 75.5 % (38.7-73.9); Platelet Count 296 T/CUMM (130-400); Red Blood Count 5.03 MC/CUMM (3.8-5.5); Red Cell Distribution Width 14.1 % (9.3-17.3); White Blood Count 11.9 T/CUMM (4-12)
[2020-09-17 09:10] LABS: Albumin 4.1 G/DL (3.4-5.0); Bilirubin,Total 0.4 MG/DL (0.2-1.0); Calcium 9.1 MG/DL (8.5-10.1); Osmolality,Calculated 278.5 MOS/KG (273-304); Potassium 3.9 MMOL/L (3.5-5.1); Total Protein 8.1 G/DL (6.4-8.2)
[2020-09-17 10:51] LABS: Bilirubin,Urine Negative (Negative); Blood, Urine Negative (Negative); Glucose,Urine (UA) Negative (Negative); Ketones,Urine 20 mg/dL (Negative); Mucus,Urine Few /LPF (Occasional); Nitrite,Urine Negative (Negative); Protein,Urine Negative; RBC,Urine 2 /HPF (0-4); Urine Appearance CLEAR (Clear); Urine Color Yellow (Yellow); Urine Urobilinogen < 2.0 EU/DL (0.2-1.0)
[2020-09-17 11:26] LABS: Barbiturates Screen,Urine Negative (Negative); Benzodiazepines Screen,Urine Negative (Negative); Cannabinoid Screen,Urine Positive (Negative); Opiate Screen,Urine Positive (Negative); Phencyclidine Screen,Urine Negative (Negative)
[2020-09-17] MEDS ORDERED: hydrALAZINE 20 MG/1 ML VIAL IV PRN (11:47)
[2020-09-17] MEDS ORDERED: NICOTINE 21 MG/24 HR PATCH TRANSDERM PRN (11:47)
[2020-09-17] MEDS ORDERED: DEXTROSE 50% 25 GM/50 ML VIAL IV PRN (11:47)
[2020-09-17] MEDS ORDERED: GLUCAGON 1 MG VIAL IM PRN (11:47)
[2020-09-17] MEDS ORDERED: ONDANSETRON 4 MG/2 ML VIAL IV PRN (11:47)
[2020-09-17] MEDS: ENOXAPARIN 40 MG/0.4 ML SYRINGE SUBCUT SCH (13:08)
[2020-09-17] MEDS: PANTOPRAZOLE 40 MG VIAL IV SCH ×2 (13:08→20:48)
[2020-09-17] MEDS: LACTATED RINGERS 1,000 ML IV SCH (13:26)
[2020-09-17] MEDS ORDERED: HYDROmorphone 2 MG/1 ML VIAL IV SCH (14:00)
[2020-09-17] MEDS: COENZYME Q10 100 MG CAPSULE PO SCH (20:48)
[2020-09-17] MEDS: AMITRIPTYLINE 50 MG TABLET PO SCH (20:48)
[2020-09-18] MEDS: LACTATED RINGERS 1,000 ML IV SCH ×2 (02:56→15:30)
[2020-09-18 04:39] LABS: Basophils # 0.1 10*3/uL (0.0-0.2); Basophils % 0.7 % (0.0-0.8); Eosinophils # 0.4 10*3/uL (0.0-0.87); Eosinophils % 4.9 % (0.00-10.9); Hematocrit 37.9 VOL% (42.0-52.0); Immature Granulocytes % 0.2 %; Immature Granulocytes Absolute 0.02 #; Lymphocytes % 36.2 % (21.2-54.2); Mean Corpuscular HGB Conc 34.3 GM/DL (32-36); Mean Corpuscular Volume 89.6 FL (87-102); Mean Platelet Volume 9.3 FL (9.6-12.0); Monocytes % 11.1 % (1.7-12.7); Neutrophils % 46.9 % (38.7-73.9); Platelet Count 239 T/CUMM (130-400); Red Blood Count 4.23 MC/CUMM (3.8-5.5); Red Cell Distribution Width 13.9 % (9.3-17.3); White Blood Count 8.4 T/CUMM (4-12)
[2020-09-18 05:14] LABS: Calcium 8.6 MG/DL (8.5-10.1); Osmolality,Calculated 273.5 MOS/KG (273-304); Potassium 4.5 MMOL/L (3.5-5.1); Risk Ratio 3.81; VLDL Cholesterol 15.8 MG/DL
[2020-09-18] MEDS: COENZYME Q10 100 MG CAPSULE PO SCH ×2 (12:57→20:57)
[2020-09-18] MEDS: PANTOPRAZOLE 40 MG VIAL IV SCH ×2 (12:58→20:57)
[2020-09-18] MEDS: ENOXAPARIN 40 MG/0.4 ML SYRINGE SUBCUT SCH (13:45)
[2020-09-18] MEDS: AMITRIPTYLINE 50 MG TABLET PO SCH (20:57)
[2020-09-19] MEDS: LACTATED RINGERS 1,000 ML IV SCH ×2 (03:21→09:42)
[2020-09-19 05:33] LABS: Basophils # 0.1 10*3/uL (0.0-0.2); Basophils % 0.6 % (0.0-0.8); Eosinophils # 0.4 10*3/uL (0.0-0.87); Eosinophils % 5.5 % (0.00-10.9); Hematocrit 41.4 VOL% (42.0-52.0); Hemoglobin 14.1 GM/DL (14.0-18.0); Immature Granulocytes % 0.1 %; Immature Granulocytes Absolute 0.01 #; Lymphocytes # 2.9 10*3/uL (1.4-4.0); Lymphocytes % 36.1 % (21.2-54.2); Mean Corpuscular HGB Conc 34.1 GM/DL (32-36); Monocytes % 11.4 % (1.7-12.7); Neutrophils % 46.3 % (38.7-73.9); Platelet Count 247 T/CUMM (130-400); Red Blood Count 4.65 MC/CUMM (3.8-5.5); Red Cell Distribution Width 13.4 % (9.3-17.3)
[2020-09-19 06:04] LABS: Calcium 8.6 MG/DL (8.5-10.1); Osmolality,Calculated 269.8 MOS/KG (273-304); Potassium 3.8 MMOL/L (3.5-5.1)
[2020-09-19] MEDS: COENZYME Q10 100 MG CAPSULE PO SCH (09:41)
[2020-09-19] MEDS: ENOXAPARIN 40 MG/0.4 ML SYRINGE SUBCUT SCH (09:41)
[2020-09-19] MEDS: PANTOPRAZOLE 40 MG VIAL IV SCH (09:41)
[2020-09-19 11:32] VITALS: BP 136/79
== END 2020-09-19 14:08 | disposition home or self-care (01) | DRG 392 ==
LOC: N.ED 08:01 → N.EDINP 11:47 → SUATTDRO 11:47 → N.5E 12:20
PROVIDERS: ADMIT Internal Medicine; ATTEND Internal Medicine